=== PATIENT | female | born 1995 | race Hispanic/Latino ===

== ENCOUNTER → 2019-12-24 15:29 | Outpatient (CLI) | payer OTHER, SELFPAY ==
--- NOTE | ~2019-12-24 | US_ITS ---
EXAMINATION: US OB follow up EXAM DATE: 12/24/2019 15:53 INDICATION: Check amniotic fluid index, estimated weight. Small for gestational age. Third tri mester. TECHNIQUE: Pelvic obstetrical transabdominal sonogram was performed by a technologist. There are mu ltiple grayscale and Doppler images available for interpretation. Comparison is made to prior examina tion from 07/17/2019. FINDINGS: There is a single fetus identified in vertex presentation with a heart rate of 139 beats pe r minute. The placenta is located in the left posterior position. There is no sonographic evidence o f retroplacental hemorrhage identified. The amniotic fluid index is 12.1 centimeters, which is normal . BIOMETRIC DATA: Biparietal diameter (BPD): 7.6cm ----------------> 30 weeks 5 days. Head circumference (HC): 28.3 cm ----------------> 31 weeks 0 days. Abdominal circumference (AC): 26.6 cm ----------> 30 weeks 5 days. Femur length (FL): 6.5 cm --------------------------> 33 weeks 4 days. These measurements are discordant. FL/AC is greater than 2 standard deviations above normal. HC/AC ratio is 1.06 (The 5th -- 95th percentile range is 0.96-1.15. Estimated weight is 1803 g +/- 271 g. This is the 24th percentile when the currently reported clinical gestation age 32 weeks 1 day, clinical estimated date of delivery (JOSH-OPE) 02/17/2020 is use d. estimated gestational age based on measurements from this exam is 31 weeks 4 days, with an e stimated date of delivery (JOSH-AUA) 02/20. IMPRESSION: 1. Single fetus in vertex presentation with heart rate 139 beats per minute. 2. Estimated weight of 1803 grams, 24th percentile using the currently reported clinical gesta tion age of 32 weeks 1 day, JOSH(OPE) 02/16. 3. FL/AC ratio flag for being greater than 2 standard deviations above normal. 4. Normal SUZANNA 12.1 cm. Reviewed, dictated and finalized at location A. RTISING DISPLAY ROTATOR IMPRESSION: 1. Single fetus in vertex presentation with heart rate 139 beats per minute. 2. Estimated weight of 1803 grams, 24th percentile using the currently r eported clinical gestation age of 32 weeks 1 day, JOSH(OPE) 02/16. 3. FL/AC ratio flag for being greater than 2 standard deviations above normal. 4. Normal SUZANNA 12.1 cm.
== END ==
PROVIDERS: Visit Provider Obstetrics & Gynecology
DX: O36.5930 Maternal care for other known or suspected poor fetal growth, third trimester, not applicable or unspecified (principal); Z3A.00 Weeks of gestation of pregnancy not specified
CPT/HCPCS: 76816

== ENCOUNTER 2020-01-13 09:17 | Outpatient (CLI) | payer OTHER, SELFPAY ==
[2020-01-13 09:30] VITALS: TEMP 36.8
[2020-01-13 10:00] VITALS: BP 112/68; PULSE 91
[2020-01-13 10:15] VITALS: BP 107/70; PULSE 87
[2020-01-13 10:25] LABS: Basophils Percent Auto 0.3 % (0.2-1.2); Eosinophils Absolute Auto 0.1 K/mm3 (0-0.3); Eosinophils Percent Auto 0.8 % (0-4.4); Hematocrit 34.9 % (37.0-47.0); Hemoglobin 11.9 g/dL (12.0-15.0); Immature Granulocyte Absolute 0.09 K/mm3 (0.00-0.031); Immature Granulocyte Percent A 0.8 % (0-0.5); Lymphocytes Percent Auto 18.2 % (18.3-44.2); Mean Corpuscular HGB Conc 34.1 g/dl (32-36); Mean Corpuscular Hemoglobin 30.8 pg (26-34); Mean Corpuscular Volume 90.4 fl (80-100); Mean Platelet Volume 10.3 fl (7.4-10.4); Monocytes Absolute Auto 0.8 K/mm3 (0.1-0.6); Monocytes Percent Auto 7.5 % (2.6-8.5); Neutrophils Absolute Auto 7.9 K/mm3 (1.3-6.7); Neutrophils Percent Auto 72.4 % (45.5-73.1); Platelet Count Result 185 k/mm3 (150-375); Red Blood Count 3.86 M/mm3 (4.2-5.4)
[2020-01-13] MEDS: ACETAMINOPHEN 500 MG TABLET 1000 MG PO (10:26)
[2020-01-13 10:28] LABS: Add Urine Microscopic? YES; Appearance Urine Clear (Clear); Bacteria Urine Trace /hpf; Bilirubin Urine Negative (Negative); Blood Urine Negative (Negative); Color Urine Yellow (Yellow); Glucose Urine UA 1+ mg/dL (Negative); Ketones Urine Negative (Negative); Leukocyte Esterase Ur Negative LEU/UL (NEGATIVE); Mucus Urine Few /lpf; Nitrate Urine Negative (Negative); Protein Urine Negative (Negative); RBC Urine 0-2 /hpf (0-2); Specific Grav Ur 1.024 (1.001-1.035); Squamous Epithelial Cell Urine Many /hpf (Few); Urobilinogen Urine Negative mg/dL (<2.0); WBC Urine 0-3 /hpf (0-3)
[2020-01-13 10:30] VITALS: BP 112/72; PULSE 84
[2020-01-13 10:32] LABS: Alanine Aminotransferase 11 U/L (4-35); Alkaline Phosphatase 98 U/L (38-126); Aspartate Amino Transferase 21 U/L (14-36); Bilirubin,Total 0.1 mg/dL (0.2-1.3); Blood Urea Nitrogen 10 mg/dL (7-17); Calcium 8.8 mg/dL (8.4-10.2); Carbon Dioxide 21 mmol/L (22-30); Chloride 107 mmol/L (98-107); Creatinine Urine 134.1 mg/dL; Estimated Glomerular Filt Rate > 60; Glucose 127 mg/dL (65-105); Potassium 3.9 mmol/L (3.4-5.0); Sodium 132 mmol/L (137-145); Total Protein Urine Random 9 mg/dL; Uric Acid 4.4 mg/dL (2.5-7.5)
[2020-01-13 10:45] VITALS: BP 108/75; PULSE 89
--- NOTE | 2020-01-13 10:51 | PC.NURSE ---
1042: Spoke with Dr. Burrell, labs and BP's reviewed. Per Dr. Burrell, patient may be discharged to home with precautions.
== END 2020-01-13 10:50 ==
LOC: ANHOBOP 09:54 → ANHOBPP 09:54
PROVIDERS: Visit Provider Obstetrics & Gynecology
DX: O13.9 Gestational [pregnancy-induced] hypertension without significant proteinuria, unspecified trimester (principal)
CPT/HCPCS: 36415; 59025; 80053; 81001; 82570; 84156; 84550; 85025; 87086; 99199; A9270

== ENCOUNTER 2020-02-04 08:14 | Inpatient (IN) | payer OTHER, SELFPAY ==
[2020-02-04] VITALS (121 sets, daily range): BP systolic 67–127; BP diastolic 17–86; PULSE 55–204; TEMP 36.4–37; O2SAT 95–100; BMI 37.1
--- NOTE | 2020-02-04 09:00 | LDADM ---
This patient, Alma Holt, was admitted to Labor/Delivery/Recovery 106 on 02/04/20 at 08:14. Plans for labor, pain management and were discussed with patient. Patient/family oriented to hospital policies and general routines including ID bracelet, bed and alarms, visiting hours, pain management, procedures, bathroom and other care routines, personal items, smoking policy, room service/diet and guest tray routines, infant security routines, and visiting hours. Patient/Family are encouraged to report perceived risks to care and to ask questions if they do not understand what they are told or what they should do. See OBIX for further documentation.
--- NOTE | 2020-02-04 09:02 | PC.NURSE ---
0902- called to inform pt came in [facility]. SVE is a dimple and pt isn't rajeev. Orders received to admit pt and start pitocin.
[2020-02-04 10:20] LABS: Basophils Percent Auto 0.3 % (0.2-1.2); Eosinophils Absolute Auto 0.1 K/mm3 (0-0.3); Eosinophils Percent Auto 0.4 % (0-4.4); Hematocrit 37.8 % (37.0-47.0); Hemoglobin 12.6 g/dL (12.0-15.0); Immature Granulocyte Absolute 0.08 K/mm3 (0.00-0.031); Immature Granulocyte Percent A 0.7 % (0-0.5); Lymphocytes Absolute Auto 1.77 K/mm3 (0.9-3.2); Lymphocytes Percent Auto 14.8 % (18.3-44.2); Mean Corpuscular HGB Conc 33.3 g/dl (32-36); Mean Corpuscular Hemoglobin 30.1 pg (26-34); Mean Corpuscular Volume 90.4 fl (80-100); Mean Platelet Volume 10.5 fl (7.4-10.4); Monocytes Absolute Auto 0.7 K/mm3 (0.1-0.6); Monocytes Percent Auto 5.6 % (2.6-8.5); Neutrophils Absolute Auto 9.4 K/mm3 (1.3-6.7); Neutrophils Percent Auto 78.2 % (45.5-73.1); Platelet Count Result 202 k/mm3 (150-375); Red Blood Count 4.18 M/mm3 (4.2-5.4); Red Cell Distribution Width 13.4 % (11.5-14.5)
[2020-02-04] MEDS: OXYTOCIN 30 UNITS/NS 500 ML 30 UNITS/500 ML BAG 6 UNITS IV CONT (10:26)
[2020-02-04] MEDS: LACTATED RINGERS 1,000 ML 125 ML IV CONT ×4 (10:26→21:30)
--- NOTE | 2020-02-04 19:18 | WPDANESEPP ---
Anes - Eval Pre Procedure Procedure: labor epidural Date/Time: 02/04/20 19:18 Surgeon: Ashanti Preop Diagnosis: pain during labor Pre Op Diagnosis: leaking Patient Data Age: 24 Gender: F Height: 1.63 m Weight: 98.18 kg Last Vital Signs Temp 36.6 C 02/04/20 17:30 Pulse 75 02/04/20 19:15 BP 119/76 02/04/20 19:15 Allergies Allergy/AdvReac Type Severity Reaction Status Date / Time No Known Allergies Allergy Verified 01/13/20 10:56 Home Medications Medication Instructions Recorded Confirmed Type PNV cmb#95-ferrous fumarate-FA 1 tablet PO DAILY 01/23/20 01/23/20 History [] sertraline [Zoloft] 50 mg PO DAILY 01/23/20 01/23/20 History Laboratory Tests 02/04/20 02/04/20 02/04/20 09:21 09:21 09:21 WBC 12.0 K/mm3 H K/mm3 (4.5-10.0) RBC 4.18 M/mm3 L M/mm3 (4.2-5.4) Hgb 12.6 g/dL g/dL (12.0-15.0) Hct 37.8 % % (37.0-47.0) MCV 90.4 fl fl (80-100) MCH 30.1 pg pg (26-34) MCHC 33.3 g/dl g/dl (32-36) RDW 13.4 % % (11.5-14.5) Plt Count 202 k/mm3 k/mm3 (150-375) MPV 10.5 fl H fl (7.4-10.4) Immature Gran % (Auto) 0.7 % H % (0-0.5) Neut % (Auto) 78.2 % H % (45.5-73.1) Lymph % (Auto) 14.8 % L % (18.3-44.2) [place] % (Auto) 5.6 % % (2.6-8.5) Eos % (Auto) 0.4 % % (0-4.4) Baso % (Auto) 0.3 % % (0.2-1.2) Lymph # (Auto) 1.77 K/mm3 K/mm3 (0.9-3.2) [place] # (Auto) 0.7 K/mm3 H K/mm3 (0.1-0.6) Eos # (Auto) 0.1 K/mm3 K/mm3 (0-0.3) Baso # (Auto) 0.0 K/mm3 K/mm3 (0.0-0.1) Abs Immat Gran (auto) 0.08 K/mm3 H K/mm3 (0.00-0.031) Absolute Neuts (auto) 9.4 K/mm3 H K/mm3 (1.3-6.7) Absolute Nucleated RBC 0.0 K/mm3 K/mm3 (0.0-0.012) Nucleated RBC % 0.0 % % (0.0-0.2) RPR Pending Blood Type A Positive Antibody Screen Negative Patient hx anesthesia problems: none Family hx anesthesia problems: none PMFSH Past Medical History Medical History (Updated 02/04/20 @ 19:20 by Remi Toth DO) Anxiety Depression Family History Family History (Updated 01/23/20 @ 12:31 by Alyssa Cabrales RN) Other No pertinent family history Social History Social History Years smoked: 2 Smoking status: Current every day smoker Tobacco type: cigarettes Second hand tobacco smoke exposure: No Substance use: never Gender identity (if verbalized by the patient): Female Spiritual care concerns: No Exam Day of Procedure 02/04/20 19:18 Patient weight: obese
[2020-02-04] MEDS: PHENYLEPHRINE 1,000 MCG/10 ML SYRINGE 100 MCG IV PUSH ×2 (20:44→21:46)
[2020-02-05] VITALS (13 sets, daily range): BP systolic 93–121; BP diastolic 50–79; PULSE 64–91; RESP 16–18; TEMP 36.5–37.3; O2SAT 100
--- NOTE | 2020-02-05 00:09 | WPDOBADMIT ---
Obstetrics - Admit Note Admission Note: Complete and pushing [facility]OM 0630 am 02/04/20 record reviewed. No pertinent additions to the history and/or any subsequent changes in the physical findings that are not consistent with the expected course of the were found. Additions to the history and/or subsequent changes in the physical findings follow. None.
[2020-02-05] MEDS: OXYTOCIN 30 UNITS/NS 500 ML 30 UNITS/500 ML BAG 125 UNITS IV CONT (00:10)
--- NOTE | 2020-02-05 02:14 | OBPPTRN ---
Patient transferred to post room #280 via WC. Support person present. Oriented to unit, room, information board, rooming in, admission packet and security measures. Patient verbalizes understanding. Infant with patient.
[2020-02-05 05:38] LABS: Hematocrit 31.9 % (37.0-47.0); Hemoglobin 10.7 g/dL (12.0-15.0)
--- NOTE | 2020-02-05 07:33 | PM.OBPRVD ---
OB - Delivery Note Procedure Delivery date: 02/04/20 Procedure: events: Labor Augmentation Intrapartal events: None Delivery augmentation: pitocin Delivery monitor: external FHT, external uterine and internal uterine Route of delivery: Laceration description: Perineal - 2nd Degree Delivery repair: vicryl Specimen: No Estimated blood loss (mL): 321 Anesthesia type: Epidural Disposition: floor Baby Date of : 02/04/20 Weeks of gestation at delivery: 38 Infant gender: Female Weight (pounds): 6 Weight (ounces): 6 presentation: vertex position: Left Occiput Anterior Placenta delivery description: Spontaneous cord vessel description: 3 Vessels, Loose and Around Body x1 score one minute: 9 score five minutes: 9
--- NOTE | 2020-02-05 08:00 | PC.NURSE ---
PT introductions made and plan of care discussed per post , pain management, breast feeding, daily care activities. PT verbalized understanding of such care.
[2020-02-05] MEDS: MULTIVIT/MIN/PREN/FOL AC/IRON TABLET 1 TAB PO (08:13)
[2020-02-05] MEDS: DOCUSATE SODIUM 100 MG CAPSULE PO ×2 (08:13→15:52)
[2020-02-05] MEDS: IBUPROFEN 600 MG TABLET PO ×3 (08:14→23:48)
--- NOTE | 2020-02-05 08:28 | P.PNOB_ITS ---
OB - PN: Subj Subjective Date/time seen: 02/05/20 08:28 Patient comments: no complaints, pain well controlled and tolerating diet [place] baby status: doing well and nursing well OB - PN: Obj Data Labs CBC & Chem 7: 02/05/20 05:02 Labs: Laboratory Results - last 24 hr 02/04/20 02/04/20 02/05/20 09:21 09:21 05:02 WBC 12.0 H RBC 4.18 L Hgb 12.6 10.7 L Hct 37.8 31.9 L MCV 90.4 MCH 30.1 MCHC 33.3 RDW 13.4 Plt Count 202 MPV 10.5 H Immature Gran % (Auto) 0.7 H Neut % (Auto) 78.2 H Lymph % (Auto) 14.8 L [place] % (Auto) 5.6 Eos % (Auto) 0.4 Baso % (Auto) 0.3 Lymph # (Auto) 1.77 [place] # (Auto) 0.7 H Eos # (Auto) 0.1 Baso # (Auto) 0.0 Abs Immat Gran (auto) 0.08 H Absolute Neuts (auto) 9.4 H Absolute Nucleated RBC 0.0 Nucleated RBC % 0.0 Blood Type A Positive Antibody Screen Negative OB - PN A/P Plan day: 1 Plan: routine care Time Spent With Patient Time: Total time spent is greater than 50% in coordination of care (as documented) at patient's floor/unit and/or counseling patient: Time with patient: less than 15 minutes Review of Systems Constitutional: Constitutional: Reports no additional constitutional complaints Cardiovascular: Cardiovascular: Reports no additional cardiovascular complaints Respiratory: Respiratory: Reports no additional respiratory complaints Gastrointestinal: Gastrointestinal: Reports no additional gastrointestinal complaints Genitourinary: Genitourinary: Reports no additional female genitourinary complaints Exam Const: General: comfortable, no acute distress, alert and awake Resp: Effort & Inspection: normal respiratory effort Auscultation: clear to auscultation bilaterally Cardio: Rate: regular rate GI: Auscultation: normal bowel sounds Other: Fundus firm below umbilicus
--- NOTE | 2020-02-05 08:30 | PC.NURSE ---
Consulted with patient, mother reports difficulties and discomfort with feeding. Mother is using a nipple shield for all feedings. Both nipples are bruised from incorrect latching. Both nipples are flat and firm. Discussed nipple shield precautions and possible complications. Instructions given on application and cleaning of shield. Patient able to return demonstration on proper application of shield. Discussed the need to initiate pumping if infant continues to nurse with the shield. Patient verbalizes understanding. With shield in place, assisted with to breast. Reviewed positioning/alignment in football, holding breast in C hold and guided asymmetrical latch on. was unable to latch correctly with several attempts. Infant was unable to draw nipple in. Mother reports pain with attempt. Mother would like to supplement for a few feedings to allow nipples to heal.
[2020-02-05 08:37] LABS: Rapid Plasma Reagin Non-Reactive (NonReactive)
--- NOTE | 2020-02-05 11:42 | WPDANLDPN2 ---
Anes-Prog Note L&D Date/Time: 02/05/20 11:42 Neuro status: Neuro function grossly intact. Cardiovascular status: normal Respiratory status: normal Airway patency: baseline Mental status: baseline Post-Op hydration status: normal Vital Signs: Last Vital Signs Temp 37.3 C 02/05/20 07:45 Pulse 91 02/05/20 07:45 Resp 18 02/05/20 07:45 BP 114/59 L 02/05/20 07:45 Pulse Ox 100 02/04/20 23:32 I/O: Intake & Output 02/04/20 02/05/20 02/05/20 23:59 07:59 15:59 Intake Total 3000 500 240 Output Total 313 72 Balance 2687 428 240 Post-procedural complaints: none Patient feedback: Patient satisfied with anesthetic care.
--- NOTE | 2020-02-05 11:43 | WPDANLDPN2 ---
Anes-Prog Note L&D Date/Time: 02/05/20 11:43 Comfortable throughout: labor and delivery Neuraxial method: epidural Epidural/Spinal procedure site: clean & non-tender Neuro status: Neuro function grossly intact. Cardiovascular status: normal Respiratory status: normal Airway patency: baseline Mental status: baseline Post-Op hydration status: normal Vital Signs: Last Vital Signs Temp 37.3 C 02/05/20 07:45 Pulse 91 02/05/20 07:45 Resp 18 02/05/20 07:45 BP 114/59 L 02/05/20 07:45 Pulse Ox 100 02/04/20 23:32 I/O: Intake & Output 02/04/20 02/05/20 02/05/20 23:59 07:59 15:59 Intake Total 3000 500 240 Output Total 313 72 Balance 2687 428 240 Post-procedural complaints: none Patient feedback: Patient satisfied with anesthetic care.
--- NOTE | 2020-02-05 12:00 | PC.NURSE ---
Mother called out for assist. Mother states she wishes to bottle feed this feeding and not attempt at breast due to pain. Breast pump provided due to ineffective. Instructions given on breast pump care and usage, pumping schedule, nipple care, and collection and storage of breast milk. Encouraged puck-en-[id number], breast massage and manual expression to stimulate supply. Assessed patient for correct flange size, placement and draw. Patient verbalizes and demonstrates understanding of instructions.
[2020-02-05] MEDS: ACETAMINOPHEN 325 MG TABLET 650 MG PO (19:43)
[2020-02-06] MEDS: DOCUSATE SODIUM 100 MG CAPSULE PO (08:12)
[2020-02-06] MEDS: MULTIVIT/MIN/PREN/FOL AC/IRON TABLET 1 TAB PO (08:12)
[2020-02-06] MEDS: IBUPROFEN 600 MG TABLET PO (08:12)
[2020-02-06 08:30] VITALS: BP 111/73; PULSE 79; RESP 14; TEMP 36.5; O2SAT 100
--- NOTE | 2020-02-06 12:18 | PM.OBPNVD ---
OB - PN: Subj Subjective Date/time seen: 02/06/20 12:18 Patient comments: no complaints baby status: doing well OB - PN: Obj Data Labs CBC & Chem 7: 02/05/20 05:02 OB - PN A/P Plan day: 2 Plan: discharge home and follow up 6 weeks Time Spent With Patient Time: Total time spent is greater than 50% in coordination of care (as documented) at patient's floor/unit and/or counseling patient: Exam : Bimanual exam- vagina & uterus: other (Uterus firm, nt @U)
[2020-02-08 10:15] VITALS: BP 128/82; PULSE 89; RESP 20; TEMP 36.9; O2SAT 99
--- NOTE | 2020-02-17 10:27 | PM.OBDSVD ---
DS: Diagnosis Admitting Diagnosis Admitting Diagnosis: Encounter for supervision of normal , unspecified, third trimester OB - DS: Summary OB Procedures : None OB Procedures Intrapartum: Spontaneous Vag Delivery OB Procedures: : None Peripartum Data Delivery Method: Natural Vaginal Laceration description: Perineal - 2nd Degree complications: none Status at Discharge Overall status at discharge: patient is progressing back to baseline Time Spent with Patient Time attestation: Total time spent providing and/or coordinating discharge services: Exam Const: General: comfortable GI: GI Palp: Yes Soft to palpation Discharge Plan Discharge Attending physician on discharge: Blanca Burrell Consulting providers: Remi Toth Discharging Clinician: Tanja Gaviria Patient Disposition: Home, Self-Care Activity: pelvic rest Diet: regular Discharge Instructions: Education: Mom and Baby Guide Given to: Mother Follow-Up: Call your delivering provider's office for an appointment to be seen in: 6 Weeks Mom and baby should come to the [facility] for the follow-up appointment. Appointment Date/Time: February 01, 2020 at 10:00 am What to expect at your follow-up visit: Blood Pressure Check Physical Assessment Call [phone] if you are unable to keep your appointment time. BREAST CARE: 1. Wear a snug supportive bra. 2. For engorgement discomfort: Breast Feeding: A. Apply warm moist washcloths B. Express milk as needed to relieve engorgement C. Wear loose clothing 3. For sore nipples: A. Identify correct latch-on B. Apply warm moist washcloths before and after nursing C. Air dry nipples after nursing D. May apply [place] cream to nipples PERINEAL CARE: 1. Until bleeding stops, use your manpreet bottle after urinating 2. Change your pad frequently throughout the day 3. You may take sitz baths several times a day (fill your bathtub with warm water and soak for 20 minutes.) Do NOT bathe in the water 4. No tub baths until seen by your physician - You may shower ACTIVITY: 1. Rest as much as possible. 2. Do not exercise or lift anything heavier than your baby (such as laundry or other children.) 3. Avoid stairs or driving as much as possible. 4. Do not put anything into the vagina. No douching, tampons, or sexual activity until seen by physician. NOTIFY PHYSICIAN IF YOU HAVE ANY QUESTIONS OR IF ANY OF THE FOLLOWING SYMPTOMS OCCUR: 1. If your perineum becomes red, swollen, or more painful than what you have experienced in the hospital. 2. If your vaginal bleeding becomes foul smelling. 3. If your vaginal bleeding becomes more heavy than a period or if your bleeding changes from pink to bright red. However, you may pass an occasional walnut-sized clot once or twice for the first week . 4. If you experience a sharp, shooting pain in your calves. 5. If you discover a hard, reddened area on your breast or if you experience flu-like symptoms. DIET: 1. Eat regular, well-balanced meals. 2. Drink plenty of fluids daily. If , drink to thirst. Stand Alone Forms: General Discharge Information Follow-up/Referrals: Tanja Gaviria MD [Physician] - 6 Weeks Discharge Medications: Continued sertraline [Zoloft] 50 mg Tablet 50 mg PO DAILY RF: 0 PNV cmb#95-ferrous fumarate-FA [] 28 mg iron- 800 mcg Tablet 1 tablet PO DAILY RF: 0 Date of admission: 02/04/20 08:14 Primary Care Provider: UNKNOWN,DOCTOR Admitting Provider: Blanca Burrell Discharge Date/Time: 02/06/20 15:30 Attending physician on admission: Tanja Gaviria Condition: Stable
== END 2020-02-06 15:30 | disposition home or self-care (01) | DRG 807 ==
LOC: ANHLDR 12:11 → ANHOB2 02-06 12:20 → ANHLDR 02-09 07:33 → ANHOB2 02-09 07:33
PROVIDERS: Obstetrics & Gynecology; Admitting Provider Obstetrics & Gynecology; Visit Provider Obstetrics & Gynecology Gynecology
DX: O69.82X0 Labor and delivery complicated by other cord entanglement, without compression, not applicable or unspecified (principal); Z37.0 Single live birth; O69.81X0 Labor and delivery complicated by cord around neck, without compression, not applicable or unspecified; O76 Abnormality in fetal heart rate and rhythm complicating labor and delivery; Z23 Encounter for immunization; Z3A.38 38 weeks gestation of pregnancy; O70.1 Second degree perineal laceration during delivery; F17.210 Nicotine dependence, cigarettes, uncomplicated; O99.333 Smoking (tobacco) complicating pregnancy, third trimester
CPT/HCPCS: 36415; 85014; 85018; 85025; 86592; 86850; 86900; 86901; A9270; J2370; J2590; J2795; J3010; J7120